=== PATIENT | male | born 1995 | race Hispanic/Latino ===

== ENCOUNTER 2019-09-22 11:04 | Outpatient (CLI) | payer OTHER ==
--- NOTE | 2019-09-22 13:09 | RAD ---
CHEST 1 VIEW: Date: 09/22/2019 HISTORY: Injury. COMPARISON: None. FINDINGS: There is volume loss of the left lung with left posterior fourth rib fracture. Small left effusion. Right lung relatively clear. IMPRESSION: Mild atelectasis and volume loss of the left lung with left posterior fourth rib fracture. Volume los s likely sequelae of respiratory splinting. POS: [facility]
== END 2019-09-22 11:05 | disposition home or self-care (01) ==
LOC: BICRAD 11:04
PROVIDERS: ATTEND Nurse Practitioner Family
DX: S20.20XA Contusion of thorax, unspecified, initial encounter (principal); S22.32XA Fracture of one rib, left side, initial encounter for closed fracture; J98.11 Atelectasis; J98.4 Other disorders of lung
CPT/HCPCS: 71045